=== PATIENT | male | born 1975 | race Caucasian/White ===

== ENCOUNTER 2020-08-01 10:55 | Emergency (ER) | payer BC, SELFPAY ==
[2020-08-01 11:06] VITALS: BP 173/104; PULSE 119; RESP 18; TEMP 36.4; O2SAT 100
--- NOTE | 2020-08-01 11:08 | DI.RAD.S_ITS ---
PROCEDURE: XR CHEST 2V INDICATIONS: feels lump below sternum TECHNIQUE: 2 views of the chest were acquired. COMPARISON: None. FINDINGS: Surgical changes and devices: None. Lungs and pleura: Lungs are clear. No pleural effusions or pneumothorax. Mediastinum: Mediastinal contours are normal. Heart size is normal. Bones and chest wall: No suspicious bony abnormalities. The sternum appears intact without a depressed fracture. Soft tissues appear unremarkable. No discrete chest wall mass identified. IMPRESSION: 1. No acute cardiopulmonary disease. 2. No definite radiographic correlate to the patient's reported palpable abnormality. Recommend correlation clinically and if indicated further evaluation may be obtained with CT. Dictated by: Fracisco Stephens M.D. on 08/01/2020 at 11:25 Approved by: Fracisco Stephens M.D. on 08/01/2020 at 11:26
--- NOTE | 2020-08-01 11:12 | ED.CHESTPAIN ---
HPI - Chest Pain General Chief Complaint: Recheck/Abnormal Lab/Rx Stated Complaint: found lump below sternum Time Seen by Provider: 08/01/20 11:07 Source: patient Mode of arrival: Ambulatory Limitations: no limitations History of Present Illness HPI narrative: Patient is a 45-year-old male who feels a lump in the center of his chest beneath his sternum. He does notice it a couple days ago tender to touch in feels like it clicks. He has no shortness of breath no erythema no fever or chills. MD complaint: chest pain Related Data Home Medications Medication Instructions Recorded Confirmed albuterol sulfate 90 mcg/actuation 2 puff INHALATION QID PRN 07/30/20 07/30/20 aerosol inhaler hydrocortisone 2.5 % topical 1 applic TOPICAL .QD-BID-QID PRN g 07/30/20 07/30/20 ointment lisinopril 20 1 tab PO DAILY 07/30/20 07/30/20 mg-hydrochlorothiazide 12.5 mg tablet minocycline 50 mg capsule 50 mg PO BID 07/30/20 07/30/20 valacyclovir 500 mg tablet 500 mg PO DAILY 07/30/20 07/30/20 Allergies Allergy/AdvReac Type Severity Reaction Status Date / Time MOLDS & SMUTS Allergy Unknown SHORTNESS Uncoded 08/01/20 11:07 OF BREATH SHORT RAGWEED POLLEN EXT Allergy Unknown OTHER, Uncoded 08/01/20 11:07 SHORTNESS OF BREATH Review of Systems Review of Systems Narrative: GENERAL: Denies chills,fever HEENT: Denies throat pain RESPIRATORY: Denies dyspnea, cough, wheezing CARDIOVASCULAR: See HPI Denies chest pain, palpitations GASTROINTESTINAL: Denies nausea, vomiting MUSCULOSKELETAL: Denies extremity pain, injury SKIN: No rash, no laceration, no pruritus NEUROLOGIC: Denies weakness, dizziness, headache, numbness 8 point review of systems is negative except for those stated above and HPI Patient History Medical History Family history of ischemic heart disease Surgical History History of ligation of vein Social History Smoking Status: Never smoker Smoking Status: Never smoker alcohol intake frequency: 0-2 drinks per day Substance Use Type: does not use Exam Initial Vital Signs Initial Vital Signs: Vital Signs Temperature 97.6 F 08/01/20 11:06 Pulse Rate 119 H 08/01/20 11:06 Respiratory Rate 18 08/01/20 11:06 Blood Pressure 173/104 H 08/01/20 11:06 Pulse Oximetry 100 08/01/20 11:06 GENERAL: Well-appearing, well-nourished and in no acute distress. HEENT: Head atraumatic,EOMI, pupils reactive, face symmetric, moist mucous membranes CARDIOVASCULAR: Regular rate and rhythm without murmurs, rubs or gallops. RESPIRATORY: Breath sounds equal bilaterally, no wheezes rales or rhonchi. Possible xiphoid process felt. There is a type of clicking no erythema fluctuation ABDOMEN: Soft, nontender. Normoactive bowel sounds all 4 quadrants. No guarding or rebound. EXTREMITIES: Normal range of motion, no clubbing or edema. Neurovascularly intact NEUROLOGICAL: Alert and oriented x4.Normal gait and speech. SKIN: Warm, dry, no laceration, no petechiae, no rashes or lesions. Course Orders Ordered: ED Orders 08/01/20 11:08 XR chest 2V Stat Vital Signs Vital signs: Vital Signs - 8 hr 08/01/20 11:06 Temperature 97.6 F Pulse Rate 119 H Respiratory Rate 18 Blood Pressure 173/104 H Pulse Oximetry 100 MDM - Chest Pain Imaging Data Chest x-ray: Radiologist's Impression: PROCEDURE: XR CHEST 2V INDICATIONS: feels lump below sternum TECHNIQUE: 2 views of the chest were acquired. COMPARISON: None. FINDINGS: Surgical changes and devices: None. Lungs and pleura: Lungs are clear. No pleural effusions or pneumothorax. Mediastinum: Mediastinal contours are normal. Heart size is normal. Bones and chest wall: No suspicious bony abnormalities. The sternum appears intact without a depressed fracture. Soft tissues appear unremarkable. No discrete chest wall mass identified. IMPRESSION: 1. No acute cardiopulmonary disease. 2. No definite radiographic correlate to the patient's reported palpable abnormality. Recommend correlation clinically and if indicated further evaluation may be obtained with CT. Dictated by: Fracisco Stephens M.D. on 08/01/2020 at 11:25 MDM Narrative Medical decision making narrative: At this time possible xiphoid process abnormality. Certainly no erythema is all or induration to suggest abscess. No actual tumor or mass is felt. X-ray is within normal limits but there is a slight abnormality. He states that over the past few months he has been significantly more active than he has been passed. He has been hiking a lot. He is unsure if anything is rubbing against his chest. Recommend pain control and follow-up with primary care provider. Discharge Plan Departure Patient Disposition: Home Clinical Impression: Prominent xiphoid Instructions: DI for Atypical Chest Pain Activity Restrictions/Additional Instructions: *You have been diagnosed with prominent xiphoid *What to do: At this time x-ray does not show any abnormality. There is no sign of infection I believe we might be feeling is part of your xiphoid process. It can become inflamed her irritable recommend pain control at this time and close monitoring. *Continue to take medications as directed Ibuprofen 600 mg every 6 hours as needed for [id number] pain *Follow up with your primary care provider in 2-3 days *Return to ER if you should have increasing pain, shortness of breath, fever or any new, worsening or concerning symptoms Prescriptions: No Action minocycline 50 mg capsule 50 mg PO BID RF: 0 valacyclovir 500 mg tablet 500 mg PO DAILY RF: 0 lisinopril-hydrochlorothiazide 20-12.5 mg tablet 1 tab PO DAILY RF: 0 albuterol sulfate 90 mcg/actuation HFA aerosol inhaler 2 puff inhalation QID PRN (Reason: COUGH OR WHEEZING) RF: 0 hydrocortisone 2.5 % ointment 1 applic topical .QD-BID-QID PRNRF: 0
== END 2020-08-01 11:44 | disposition home or self-care (01) ==
PROVIDERS: Emergency Provider Emergency Medicine
DX: R29.898 Other symptoms and signs involving the musculoskeletal system (principal)
CPT/HCPCS: 71046; 99283

== ENCOUNTER → 2020-09-04 10:40 | Outpatient (CLI) | payer BC, SELFPAY ==
--- NOTE | 2020-09-04 10:42 | DI.US.S_ITS ---
PROCEDURE: US ABDOMEN LIMITED INDICATIONS: Mass TECHNIQUE: Real-time focused scanning was performed of the abdomen, with image documentation. COMPARISON: None. FINDINGS: No subcutaneous mass in the parasternal or subxiphoid soft tissue. No evidence of hernia or abnormal cartilage. The musculature appears symmetric. IMPRESSION: No sonographic abnormalities. Dictated by: Ana Luisa Squires M.D. on 09/04/2020 at 13:33 Approved by: Ana Luisa Squires M.D. on 09/04/2020 at 13:35
== END ==
PROVIDERS: PCP Family Medicine; Referring Provider Family Medicine; Visit Provider Family Medicine
DX: R19.06 Epigastric swelling, mass or lump (principal)
CPT/HCPCS: 76705

== ENCOUNTER → 2020-11-24 08:16 | Outpatient (CLI) | payer BC, SELFPAY ==
[2020-11-24 20:27] LABS: Alanine Aminotransferase 25 IU/L (<50); Albumin 4.5 g/dL (3.5-5.0); Albumin Globulin Ratio 1.4 (1.0-2.8); Alkaline Phosphatase 56 U/L (38-126); Aspartate Aminotransferase 33 IU/L (17-59); BUN Creatinine Ratio 15.9 (6-22); Bilirubin Unconjugated 0.9 mg/dL (0.0-1.1); Blood Urea Nitrogen 18 mg/dL (9-20); Calcium 9.7 mg/dL (8.4-10.2); Carbon Dioxide 26 mmol/L (22-32); Chloride 100 mmol/L (98-107); Estimated Glomerular Filt Rate > 60.0 mL/min (>60); Globulin 3.2 g/dL (1.7-4.1); Glucose 117 mg/dL (70-100); HEMOLYSIS < 15 (0-50); Potassium 4.3 mmol/L (3.4-5.1); Sodium 134 mmol/L (137-145); Total Protein 7.7 g/dL (6.3-8.2)
[2020-11-24 20:28] LABS: Hematocrit 47.3 % (41-53); Hemoglobin 15.7 g/dL (13.5-17.5); Mean Corpuscular HGB Conc 33.1 % (30-36); Mean Corpuscular Hemoglobin 30.8 PG (26-34); Platelet Count 220 X10^3/uL (150-400); Red Blood Cell Count 5.09 X10^6/uL (4.5-5.9); Red Cell Distribution Width 13.1 % (11.6-14.8); White Blood Cell Count 4.7 X10^3/uL (4.5-11.0)
[2020-11-24 20:58] LABS: Prostate Specific Antigen Scrn 2.38 ng/mL (0.1-4.0)
[2020-11-24 21:19] LABS: Hep C Virus Ab w/Reflex Quant NEGATIVE s/c (NEGATIVE)
[2020-11-24 22:29] LABS: Urine N gonorrhoeae NOT DETECTED
[2020-11-24 22:49] LABS: Urine Chlamydia NOT DETECTED
== END ==
PROVIDERS: PCP Family Medicine; Visit Provider Family Medicine
DX: R30.0 Dysuria (principal); I10 Essential (primary) hypertension; F10.10 Alcohol abuse, uncomplicated; Z12.5 Encounter for screening for malignant neoplasm of prostate
CPT/HCPCS: 80053; 80076; 85027; 86803; 87491; 87591; G0103